=== PATIENT | male | born 1955 | race Caucasian/White ===

== ENCOUNTER → 2019-10-10 | Outpatient (CLI) | payer MEDICARE ==
[~2019-10-10] MED LIST: ASPIRIN 81M81 MG/TA2 PO; ELIQUIS 5MG PO; FOLIC ACID 11 MG/TA1 PO; LANOXIN 0.120.125 MG PO; LANOXIN 0.25M0.25 MG PO; MULTI VITAMINS1 TAB PO; NORCO 325 MG-51 TAB PO; PRINIVIL10 MG PO; PRINIVIL40 MG PO; PROAIR HFA0.09 MG/AC IH; ROXICODONE 55 MG/TAB PO; THIAMINE 1100 MG/TAB PO; TOPROL XL 50MG50 MG PO; TOPROL XL100 MG PO
== END ==
LOC: COL.RAD 07:30
DX: Z01.812 Encounter for preprocedural laboratory examination (principal); G31.9 Degenerative disease of nervous system, unspecified
CPT/HCPCS: A9585

== ENCOUNTER 2024-03-29 11:05 | Day surgery (SDC) | payer MEDICARE, MEDICAID ==
[2024-03-29] VITALS (7 sets, daily range): BP systolic 109–126; BP diastolic 75–89; PULSE 46–71; TEMP 97.7
[~2024-03-29] VITALS: Ht 185.4 cm; Wt 97.7 kg
[~2024-03-29 11:05] MED LIST changes: -LANOXIN 0.25M0.25 MG PO; +NS 1,000 ML IV SCH
[2024-03-29] MEDS ORDERED: Lidocaine PF 1% (10 MG/ML) 5 ML VIAL ONE (12:24)
[2024-03-29] MEDS ORDERED: CORDARONE200 MG/TAB PO (12:45)
[2024-03-29] MEDS ORDERED: ZYLOPRIM 300MG300 MG PO (12:45)
[2024-03-29] MEDS ORDERED: AQUAPHOR BABY HEA41% TP (12:46)
[2024-03-29] MEDS ORDERED: ARNUITY IH (12:46)
[2024-03-29] MEDS ORDERED: BUMEX0.5 MG PO (12:47)
[2024-03-29] MEDS ORDERED: PARCOPA 25/101 UDTAB PO (12:49)
[2024-03-29] MEDS ORDERED: SINEMET 25/101 UDTAB PO (12:49)
[2024-03-29] MEDS ORDERED: CARDIZEM CD 18180 MG PO (12:50)
[2024-03-29] MEDS ORDERED: CETAPHIL MOISTU1 CRE TP (12:50)
[2024-03-29] MEDS ORDERED: VITAMIN D31000 I1 PO (12:51)
[2024-03-29] MEDS ORDERED: MITIGARE0.6 MG (12:51)
[2024-03-29] MEDS ORDERED: EFFEXOR-XR150 MG PO (12:53)
[2024-03-29] MEDS ORDERED: FENTANYL 50MCG TD (12:54)
[2024-03-29] MEDS ORDERED: FENTANYL 25 MCG TD (12:54)
[2024-03-29] MEDS ORDERED: FERRO-TIME325 MG PO (12:57)
[2024-03-29] MEDS ORDERED: FIBERCON (12:57)
[2024-03-29] MEDS ORDERED: NEURONTIN300 MG/CAP PO (12:58)
[2024-03-29] MEDS ORDERED: FLOMAX 0.40.4 MG/CAP PO (12:58)
[2024-03-29] MEDS ORDERED: IMODIUM 2MG CAPS2 MG PO (13:03)
[2024-03-29] MEDS ORDERED: ANUSOL HC CREAM30 GM TP (13:03)
[2024-03-29] MEDS ORDERED: GLUCOPHAGE500 MG/TAB PO (13:04)
[2024-03-29] MEDS ORDERED: KAPSPARGO SPRIN25 MG PO (13:05)
[2024-03-29] MEDS ORDERED: GOOD SENSE400 MG/5 M PO (13:06)
[2024-03-29] MEDS ORDERED: MYLANTA MAXIMU355 M1 PO (13:06)
[2024-03-29] MEDS ORDERED: ORAJEL 4X TOOTHA7 GM MM (13:08)
[2024-03-29] MEDS ORDERED: K-DUR20 MEQ PO (13:09)
[2024-03-29] MEDS ORDERED: PROTONIX 40MG T40 MG PO (13:09)
[2024-03-29] MEDS ORDERED: DEMADEX100 MG PO (13:10)
[2024-03-29] MEDS ORDERED: VENTOLIN0.09 MG IH ×2 (13:11→13:12)
[2024-03-29] MEDS ORDERED: TYLENOL 325MG325 MG PO (13:11)
[2024-03-29] MEDS ORDERED: XARELTO20 MG PO (13:12)
[2024-03-29 13:13] LABS: POTASSIUM 3.8 mEq/L (3.5-4.5)
[2024-03-29 13:30] LABS: INR 1.7 (0.8-3.0); PROTHROMBIN TIME 18.5 SECONDS (9.7-12.8)
[2024-03-29 13:49] LABS: THYROID STIMULATING HORMONE 1.767 uIU/mL (0.350-4.940)
--- NOTE | 2024-03-29 15:49 | NUR ---
1520-PATIENT AT BASELINE MENTATION, VSS. REMAINS ON OXYGEN AT 2 L/MIN. TRANSFER OF CARE REPORT TO NHUNG KAPLAN. BED TO LOWEST POSITION, X3 BEDRAILS IN PLACE, CALL LIGHT WITHIN REACH.
--- NOTE | 2024-03-29 17:10 | NUR ---
Pt brought to [facility] by wheelchair accompanied by SELINA Dye from [facility]. Pt was scheduled for a JEFFY/CV. Meds and HX reviewed with SELINA Dye and pt. Pt has aphasia, but can respond with yes or no. A verbal consent was done with the pt and DPOA, second witness for the consent was NHUNG Peñaloza. Post procedure the pt recovered in EU15 for about an hr. Offered the pt something to drink, pt accepted an ice tea. When asked if the pt was doing okay they responded yes. Discharge education and information discussed with the pt. No questions at this time. Pt exited the unit by wheelchair accompanied by the nurse and SELINA Dye to [facility].
== END 2024-03-29 16:55 | disposition home or self-care (01) ==
LOC: COL.CAR 11:05
PROVIDERS: Internal Medicine Interventional Cardiology
DX: I34.0 Nonrheumatic mitral (valve) insufficiency (principal)
CPT/HCPCS: J2704; J7030